=== PATIENT | male | born 1965 | race Two or more races ===

== ENCOUNTER 2022-05-14 16:20 | Inpatient (IN) | payer MEDICARE, OTHER ==
[2022-05-14 17:32] VITALS: BMI 21.9
[2022-05-14] MEDS ORDERED: DICYCLOMINE HCL 10 MG CAPSULE PO PRN (18:19)
[2022-05-14] MEDS ORDERED: NALOXONE HCL 0.4 MG/ML VIAL IM PRN (18:19)
[2022-05-14] MEDS ORDERED: NALOXONE HCL (KLOXXADO) 8 MG SPRAY NS PRN (18:19)
[2022-05-14] MEDS ORDERED: BACITRACIN 0.9 GM PACKET TP ONE (18:19)
[2022-05-14] MEDS ORDERED: ONDANSETRON *ODT* 4 MG TABLET SL PRN (18:19)
[2022-05-14] MEDS ORDERED: BENZOCAINE/MENTHOL (CHLORASEPTIC ) LOZENGE MM PRN (18:19)
[2022-05-14] MEDS ORDERED: ACETAMINOPHEN 325 MG TABLET (FP) PO PRN (18:19)
[2022-05-14] MEDS ORDERED: IBUPROFEN 600 MG TABLET (FP) PO PRN (18:19)
[2022-05-14] MEDS ORDERED: LOPERAMIDE HCL 2 MG CAPSULE PO PRN (18:19)
[2022-05-14] MEDS ORDERED: IBUPROFEN 400 MG TABLET (FP) PO PRN (18:19)
[2022-05-14] MEDS ORDERED: NICOTINE 10 MG CARTRIDGE (INHALER) IH PRN (18:19)
[2022-05-14] MEDS ORDERED: POLYETHYLENE GLYCOL (HEALTHYLAX) 3350 17 GM PACKET PO PRN (18:19)
[2022-05-14] MEDS ORDERED: METHOCARBAMOL 500 MG TABLET PO PRN (18:19)
[2022-05-14] MEDS ORDERED: guaiFENesin 600 MG TABLET.ER (FP) PO PRN (18:19)
[2022-05-14] MEDS ORDERED: MAGNESIUM HYDROX 2400MG/30ML ORAL SUSPENSION 30 ML CUP PO PRN (18:19)
[2022-05-14] MEDS ORDERED: BISMUTH SUBSALICYLATE 524 MG/30 ML PO PRN (18:19)
[2022-05-14] MEDS ORDERED: BENZONATATE 200 MG CAPSULE PO PRN (18:19)
[2022-05-14] MEDS ORDERED: MAG HYDROX/AL HYDROX/SIMETH 30 ML UNIT-DOSE CUP PO ONE (18:23)
[2022-05-14] MEDS: MAG HYDROX/AL HYDROX/SIMETH 30 ML UNIT-DOSE CUP PO PRN (20:14)
[2022-05-14] MEDS: diazePAM 5 MG TABLET PO PRN (20:16)
[2022-05-14] MEDS: amLODIPine BESYLATE 5 MG TABLET (FP) PO SCH (20:53)
[2022-05-14] MEDS: LISINOPRIL 5 MG TABLET PO SCH (20:53)
[2022-05-14] MEDS: CARVEDILOL 6.25 MG TABLET (FP) PO SCH (20:53)
[2022-05-14] MEDS ORDERED: INSULIN (NOVOLOG) ASPART 100 UNITS/ML 10ML VIAL SQ ONE (21:37)
[2022-05-14] MEDS: THIAMINE HCL 100 MG TABLET (FP) PO SCH (22:44)
[2022-05-14] MEDS: MELATONIN 5 MG TABLETS PO SCH (22:44)
[2022-05-14] MEDS: SULFAMETHOXAZOLE/TRIMETHOPRIM 800MG/160MG D.S. TABLET PO SCH (22:44)
[2022-05-14] MEDS: diazePAM 5 MG TABLET PO SCH (22:44)
[2022-05-15] MEDS: hydrOXYzine PAMOATE 25 MG CAPSULE (FP) PO PRN (00:10)
[2022-05-15] MEDS: MAG HYDROX/AL HYDROX/SIMETH 30 ML UNIT-DOSE CUP PO PRN (02:07)
[2022-05-15] MEDS: diazePAM 5 MG TABLET PO SCH ×4 (05:40→22:04)
[2022-05-15] MEDS ORDERED: INSULIN SLIDING SCALE (NOVOLOG) 1 VIAL SQ SCH (07:00)
[2022-05-15] MEDS: INSULIN SLIDING SCALE (NOVOLOG) 1 VIAL SQ SCH ×2 (07:07→11:30)
[2022-05-15] MEDS: PRENATAL VITAMINS W/ FOLIC ACID TABLET (FP) PO SCH (10:14)
[2022-05-15] MEDS: LISINOPRIL 5 MG TABLET PO SCH (10:15)
[2022-05-15] MEDS: SULFAMETHOXAZOLE/TRIMETHOPRIM 800MG/160MG D.S. TABLET PO SCH ×2 (10:15→22:05)
[2022-05-15] MEDS: CARVEDILOL 6.25 MG TABLET (FP) PO SCH (10:15)
[2022-05-15] MEDS: ATORVASTATIN CA 40 MG TABLET (FP) PO SCH (10:15)
[2022-05-15] MEDS: amLODIPine BESYLATE 5 MG TABLET (FP) PO SCH (10:15)
[2022-05-15] MEDS: ASPIRIN 81 MG CHEWABLE TABLETS PO SCH (10:15)
[2022-05-15 10:27] LABS: HEMATOCRIT 32.6 % (35.4-49); HEMOGLOBIN 10.6 GM/dL (11.7-16.9); MCH 27.3 pg (25.7-33.7); MCHC 32.4 g/dl (32.0-35.9); MEAN CELL VOLUME 84.3 fl (80-96); MEAN PLT VOLUME 10.2 fl (7.5-11.1); PLATELET COUNT 227 10^3/uL (134-434); RBC 3.87 M/mm3 (4.00-5.60); RDW 16.5 % (11.9-15.9); WHITE BLOOD COUNT 7.7 K/mm3 (4.0-10.0)
[2022-05-15 10:36] LABS: CHLORIDE 96 mmol/L (98-107); SODIUM 133 mmol/L (136-145)
[2022-05-15 10:38] LABS: CALCIUM 8.6 mg/dL (8.5-10.1)
[2022-05-15 10:39] LABS: ALBUMIN 3.2 g/dl (3.4-5.0); ANION GAP 7 MMOL/L (8-16); CO2 30 mmol/L (21-32)
[2022-05-15 10:42] LABS: CREATININE 1.7 mg/dL (0.55-1.3); SGOT/AST 15 U/L (15-37); SGPT/ALT 30 U/L (13-61)
[2022-05-15 10:43] LABS: BILIRUBIN,TOTAL 0.4 mg/dL (0.2-1); TOT PROT 6.8 g/dl (6.4-8.2)
[2022-05-15 10:45] LABS: ALK PHOS 122 U/L (45-117)
[2022-05-15 10:48] LABS: GLUCOSE,RANDOM 667 mg/dL (74-106)
[2022-05-15] MEDS ORDERED: INSULIN (NOVOLOG) ASPART 100 UNITS/ML 10ML VIAL SQ ONE (11:03)
[2022-05-15] MEDS: NON-FORMULARY MED SQ SCH ×2 (17:12→21:56)
[2022-05-15] MEDS: BACITRACIN 0.9 GM PACKET TP SCH (18:48)
[2022-05-15] MEDS ORDERED: traZODone HCL 50 MG TABLET (FP) PO SCH (22:00)
[2022-05-15] MEDS: MELATONIN 5 MG TABLETS PO SCH (22:04)
[2022-05-15] MEDS: THIAMINE HCL 100 MG TABLET (FP) PO SCH (22:05)
[2022-05-15] MEDS: DOXEPIN HCL 25 MG CAPSULE PO SCH (22:05)
[2022-05-16] MEDS: diazePAM 5 MG TABLET PO SCH ×3 (05:16→22:48)
[2022-05-16] MEDS: NON-FORMULARY MED SQ SCH ×4 (06:12→21:39)
[2022-05-16] MEDS: LISINOPRIL 5 MG TABLET PO SCH (10:28)
[2022-05-16] MEDS: ATORVASTATIN CA 40 MG TABLET (FP) PO SCH (10:28)
[2022-05-16] MEDS: ASPIRIN 81 MG CHEWABLE TABLETS PO SCH (10:28)
[2022-05-16] MEDS: amLODIPine BESYLATE 5 MG TABLET (FP) PO SCH (10:28)
[2022-05-16] MEDS: SULFAMETHOXAZOLE/TRIMETHOPRIM 800MG/160MG D.S. TABLET PO SCH ×2 (10:28→22:46)
[2022-05-16] MEDS: ARIPiprazole 5 MG TABLET PO SCH (10:28)
[2022-05-16] MEDS: BACITRACIN 0.9 GM PACKET TP SCH (10:29)
[2022-05-16] MEDS: CARVEDILOL 6.25 MG TABLET (FP) PO SCH (10:29)
[2022-05-16] MEDS: PRENATAL VITAMINS W/ FOLIC ACID TABLET (FP) PO SCH (10:29)
[2022-05-16] MEDS: THIAMINE HCL 100 MG TABLET (FP) PO SCH (22:47)
[2022-05-16] MEDS: DOXEPIN HCL 25 MG CAPSULE PO SCH (22:47)
[2022-05-16] MEDS: MELATONIN 5 MG TABLETS PO SCH (22:47)
[2022-05-16] MEDS: hydrOXYzine PAMOATE 25 MG CAPSULE (FP) PO PRN (22:47)
[2022-05-17] MEDS: diazePAM 5 MG TABLET PO SCH ×2 (05:33→17:28)
[2022-05-17] MEDS: NON-FORMULARY MED SQ SCH ×4 (07:34→21:32)
[2022-05-17] MEDS: SULFAMETHOXAZOLE/TRIMETHOPRIM 800MG/160MG D.S. TABLET PO SCH ×2 (10:22→21:31)
[2022-05-17] MEDS: ARIPiprazole 5 MG TABLET PO SCH (10:23)
[2022-05-17] MEDS: PRENATAL VITAMINS W/ FOLIC ACID TABLET (FP) PO SCH (10:23)
[2022-05-17] MEDS: ASPIRIN 81 MG CHEWABLE TABLETS PO SCH (10:23)
[2022-05-17] MEDS: amLODIPine BESYLATE 5 MG TABLET (FP) PO SCH (10:23)
[2022-05-17] MEDS: ATORVASTATIN CA 40 MG TABLET (FP) PO SCH (10:23)
[2022-05-17] MEDS: LISINOPRIL 5 MG TABLET PO SCH (10:23)
[2022-05-17] MEDS: CARVEDILOL 6.25 MG TABLET (FP) PO SCH (10:23)
[2022-05-17] MEDS: diazePAM 5 MG TABLET PO PRN (10:24)
[2022-05-17] MEDS: BACITRACIN 0.9 GM PACKET TP SCH (10:24)
[2022-05-17] MEDS: MAG HYDROX/AL HYDROX/SIMETH 30 ML UNIT-DOSE CUP PO PRN ×2 (10:27→21:35)
[2022-05-17] MEDS: MELATONIN 5 MG TABLETS PO SCH (21:31)
[2022-05-17] MEDS: DOXEPIN HCL 25 MG CAPSULE PO SCH (21:31)
[2022-05-17] MEDS: THIAMINE HCL 100 MG TABLET (FP) PO SCH (21:31)
[2022-05-18] MEDS: MAG HYDROX/AL HYDROX/SIMETH 30 ML UNIT-DOSE CUP PO PRN (05:33)
[2022-05-18] MEDS ORDERED: diazePAM 5 MG TABLET PO ONE (06:00)
[2022-05-18] MEDS: NON-FORMULARY MED SQ SCH ×2 (08:19→11:26)
[2022-05-18 09:39] VITALS: BP 153/89; PULSE 84; RESP 18; TEMP 98
[2022-05-18] MEDS: SULFAMETHOXAZOLE/TRIMETHOPRIM 800MG/160MG D.S. TABLET PO SCH (10:21)
[2022-05-18] MEDS: LISINOPRIL 5 MG TABLET PO SCH (10:21)
[2022-05-18] MEDS: amLODIPine BESYLATE 5 MG TABLET (FP) PO SCH (10:21)
[2022-05-18] MEDS: ATORVASTATIN CA 40 MG TABLET (FP) PO SCH (10:21)
[2022-05-18] MEDS: ASPIRIN 81 MG CHEWABLE TABLETS PO SCH (10:21)
[2022-05-18] MEDS: ARIPiprazole 5 MG TABLET PO SCH (10:22)
[2022-05-18] MEDS: CARVEDILOL 6.25 MG TABLET (FP) PO SCH (10:22)
[2022-05-18] MEDS: PRENATAL VITAMINS W/ FOLIC ACID TABLET (FP) PO SCH (10:23)
[2022-05-18] MEDS: BACITRACIN 0.9 GM PACKET TP SCH (10:26)
== END 2022-05-18 12:09 | disposition other institution (70) | DRG 897 ==
LOC: YASAS 16:20 → Y3N 18:50
PROVIDERS: ADMIT Allergy & Immunology; ATTEND Surgery
PROC: HZ2ZZZZ Detoxification Services for Substance Abuse Treatment (ICD-10-PCS; principal; 2022-05-14)
DX: F10.230 Alcohol dependence with withdrawal, uncomplicated (principal); F14.20 Cocaine dependence, uncomplicated; F12.90 Cannabis use, unspecified, uncomplicated; F17.210 Nicotine dependence, cigarettes, uncomplicated; F19.24 Other psychoactive substance dependence with psychoactive substance-induced mood disorder; E78.2 Mixed hyperlipidemia; I10 Essential (primary) hypertension; K21.9 Gastro-esophageal reflux disease without esophagitis; E11.9 Type 2 diabetes mellitus without complications; Z79.4 Long term (current) use of insulin; Z86.69 Personal history of other diseases of the nervous system and sense organs; Z87.11 Personal history of peptic ulcer disease; Z86.59 Personal history of other mental and behavioral disorders
CPT/HCPCS: 36415; 80053; 82962; 85027; 86780; C9803-CS; U0003; U0005